=== PATIENT | male | born 1995 | race Caucasian/White ===

== ENCOUNTER → 2016-08-19 | Outpatient (CLI) | payer SELFPAY | LOC: LAB.O 10:45 | PROVIDERS: ATTEND Family Medicine | DX: R22.9 Localized swelling, mass and lump, unspecified (principal) ==

== ENCOUNTER → 2016-09-04 | Outpatient (CLI) | payer BC, SELFPAY ==
--- NOTE | 2016-09-04 10:20 | MAM ---
EXAM DESCRIPTION: MAMMO BREAST DIAGNOSTIC BILATERAL Images were reviewed with R2 computer-aided detection. CLINICAL HISTORY: Right breast nodule. COMPARISON: No prior exam. FINDINGS: Routine views in a male are obtained. Right greater than left gynecomastia. No dominant mass, architectural distortion or clustered microcalcification. IMPRESSION: Benign exam. Mastodynia recommendations were given. BIRAD CATEGORY: 2 BENIGN RECOMMENDATION: FOLLOW-UP: Clinical followup. According to the [employer], yearly mammograms are recommended starting at age 40 and continuing as long as a woman is in good health. Any breast change noted on a breast self-exam should be reported promptly to the patient's healthcare provider. Breast MRI is recommended for women with an approximately 20-25% or greater lifetime risk of breast cancer, including women with a strong family history of breast or ovarian cancer and women who have been treated for Hodgkin's disease. Electronically signed by: Brooke Delatorre 09/04/2016 10:19
== END ==
LOC: MAMMO 09:14
PROVIDERS: ATTEND Family Medicine
DX: R22.9 Localized swelling, mass and lump, unspecified (principal)